=== PATIENT | female | born 1985 | race Caucasian/White ===

== ENCOUNTER 2021-11-18 12:28 | Inpatient (IN) | payer OTHER, SELFPAY ==
[2021-11-18] VITALS (25 sets, daily range): BP systolic 100–158; BP diastolic 67–86; PULSE 71–89; RESP 14–32; O2SAT 93–100; BMI 22.6; BMI 25.8
--- NOTE | 2021-11-18 12:28 | PC.NURSE ---
PT INTUBATED BY DR. VAZQUEZ.
--- NOTE | 2021-11-18 12:28 | PC.NURSE ---
PT PLACED ON CONTINUOUS SPO2, NIBP, AND CM.
[2021-11-18] MEDS: succinylcholine 20 mg/mL SDV 10mL 100 MG IV (12:30)
--- NOTE | 2021-11-18 12:35 | XRR_ITS ---
PROCEDURE INFORMATION: Exam: XR Chest Exam date and time: 11/18/2021 1:30 PM Age: 36 years old Clinical indication: Endotracheal tube placement. TECHNIQUE: Imaging protocol: Radiologic exam of the chest. Views: 1 view. COMPARISON: No relevant prior studies available. FINDINGS: Tubes, catheters and devices: Endotracheal tube with tip approximately 4.9 cm above the briseida. Probable spinal stimulator. Lungs: No pulmonary consolidation. Pleural spaces: No pleural effusion. No pneumothorax. Heart/Mediastinum: The cardiac silhouette is likely exaggerated by AP technique. No gross evidence of pneumomediastinum. Bones/joints: Thoracolumbar hardware is incompletely visualized. No gross fracture. Soft tissues: Nodular densities at the lung bases likely represent nipple shadows. Consider repeat chest x-ray with nipple markers to confirm. Organs: Probable prior cholecystectomy. XR/XR chest 1V portable [id number] IMPRESSION: 1. Endotracheal tube with tip approximately 4.9 cm above the briseida. 2. Nodular densities at the lung bases likely represent nipple shadows. Consider repeat chest x-ray with nipple markers to confirm.
--- NOTE | 2021-11-18 12:36 | CTR_ITS ---
PROCEDURE INFORMATION: Exam: CTA Chest With Contrast Exam date and time: 11/18/2021 1:51 PM Age: 36 years old Clinical indication: Other: Post code; Prior surgery; Surgery type: Back; Additional info: Cardiac arrest TECHNIQUE: Imaging protocol: Computed tomographic angiography of the chest with contrast. 3D rendering (Not supervised by radiologist): MIP and/or 3D reconstructed images were created by the technologist. Radiation optimization: All CT scans at this facility use at least one of these dose optimization techniques: automated exposure control; mA and/or kV adjustment per patient size (includes targeted exams where dose is matched to clinical indication); or iterative reconstruction. Contrast material: OMNI 350; Contrast volume: 95 ml; Contrast route: INTRAVENOUS (IV); COMPARISON: CR (CHEST, ) 11/18/2021 1:30 PM RADIATION DOSE METRICS: Total DLP (mGy-cm): 968.93 FINDINGS: Tubes, catheters and devices: ET tube in good position. Pulmonary arteries: There is no pulmonary embolism in the central-proximal segmental branches. Assessment of the peripheral subsegmental small branches is limited. Aorta: No aortic aneurysm. No aortic dissection. Lungs: Dependent atelectatic changes in both lungs. No acute consolidation/contusion or ground-glass opacity. Pleural spaces: Unremarkable. No pneumothorax. No pleural effusion. Heart: Minimal cardiomegaly. No obvious vascular congestion or coronary calcification. Lymph nodes: Unremarkable. No enlarged lymph nodes. Bones/joints: No acute fracture. Soft tissues: Unremarkable. PROCEDURE INFORMATION: Exam: CT Abdomen And Pelvis With Contrast Exam date and time: 11/18/2021 1:51 PM Age: 36 years old Clinical indication: Other: Post code; Prior surgery; Surgery type: Back; Additional info: Cardiac arrest TECHNIQUE: Imaging protocol: Computed tomography of the abdomen and pelvis with contrast. Radiation optimization: All CT scans at this facility use at least one of these dose optimization techniques: automated exposure control; mA and/or kV adjustment per patient size (includes targeted exams where dose is matched to clinical indication); or iterative reconstruction. Contrast material: OMNI 350; Contrast volume: 95 ml; Contrast route: INTRAVENOUS (IV); COMPARISON: CR (CHEST, ) 11/18/2021 1:30 PM RADIATION DOSE METRICS: Total DLP (mGy-cm): 968.93 FINDINGS: Liver: Normal liver size with nonspecific minimal periportal lucency. No obvious intrahepatic biliary dilatation however extrahepatic is obscured by metallic artifacts. Gallbladder and bile ducts: Cholecystectomy clips. Pancreas: Normal. No ductal dilation. Spleen: Normal. No splenomegaly. Adrenal glands: Normal. No mass. Kidneys and ureters: No obvious hydronephrosis or large calculi. Stomach and bowel: Large stool burden with significant amount of liquid stool suggesting possible diarrhea. Mild ascending colonic distension with no obvious obstructive mass or acute/abrupt transition point. No obvious small bowel obstruction. No pneumatosis or suspicious bowel wall thickening otherwise. Appendix: Normal appendix. Intraperitoneal space: Trace perihepatic ascites Vasculature: No obvious aortic aneurysm or dissection. The major aortic branches are somewhat obscured by artifacts. Lymph nodes: No enlarged lymph nodes. Urinary bladder: Unremarkable as visualized. Reproductive: No significant uterine enlargement however there is a probable dorsal body fundal intramural myoma measuring about 1.3 x 1.8 cm. No adnexal region masses. Bones/joints: Metallic surgical hardware in thoracolumbar junction resulting in streak artifacts partially obscuring adjacent anatomy. Several visceral vascular structures in the upper abdomen are somewhat obscured by metallic artifacts from spine fixation device. Minimal leftward scoliosis of upper lumbar spine. Soft tissues: No acute findings. CT/CT angio chest w abd pel w con IMPRESSION: 1. Dependent atelectatic changes in both lungs. No significant lung abnormalities or other acute thoracic findings otherwise. 2. Minimal cardiomegaly with no obvious vascular congestion. IMPRESSION: 1. Somewhat limited exam due to artifacts from thoracolumbar spine junction hardware. 2. Trace perihepatic ascites and minimal nonspecific periportal lucency/edema of uncertain significance but may be related to rapid IV hydration. Clinical/LFT correlation should be obtained. 3. Large stool burden with significant amount of liquid stool suggesting possible diarrhea. There is also mild ascending colonic distension with no other obvious signs of small bowel or colonic obstruction, pneumatosis or suspicious bowel wall thickening. 4. Probable small uterine fibroid.
--- NOTE | 2021-11-18 12:37 | ECG_ITS ---
[facility] Test Date: 2021-11-18 Pat Name: Lucy Michael Department: Room: [id number] Gender: Female Structural Drafter: : 1985 Requested By: Bryce Wade Order Number: [id number] Dea MD: Austin Keen M.D. Measurements Intervals [place] Rate: 83 P: 180 MO: 96 QRS: 104 QRSD: 129 T: 4 QT: 368 QTc: 434 Interpretive Statements SINUS RHYTHM WITH SHORT MO INTERVAL RIGHT AXIS DEVIATION [QRS AXIS > 100] Interventricular conduction delay Poor R wave progression INTERPRETATION BASED ON A DEFAULT AGE OF 40 YEARS No previous ECG available for comparison Electronically Signed On 11-19-2021 8:20:43 CDT by Austin Keen M.D. [id number] f
[2021-11-18] MEDS: sodium chloride 0.9% 1,000 ML 999 ML IV ×2 (12:40→14:48)
[2021-11-18] MEDS: chlorhexidine gluconate 4% Btl 118 mL 1 APPLIC TOPICAL (12:41)
--- NOTE | 2021-11-18 12:46 | CTR_ITS ---
PROCEDURE INFORMATION: Exam: CT Head Without Contrast Exam date and time: 11/18/2021 1:47 PM Age: 36 years old Clinical indication: Post code/cardiac arrest. Prior back surgery. TECHNIQUE: Imaging protocol: Computed tomography of the head without contrast. Radiation optimization: All CT scans at this facility use at least one of these dose optimization techniques: automated exposure control; mA and/or kV adjustment per patient size (includes targeted exams where dose is matched to clinical indication); or iterative reconstruction. COMPARISON: No relevant prior studies available. RADIATION DOSE METRICS: Total DLP (mGy-cm): 1129.78 FINDINGS: Brain: No acute intracranial hemorrhage. There is diffuse sulcal effacement with which may reflect generalized swelling. The handy-white differentiation is discernible arguing against presley global infarction. No mass, mass effect or midline shift. The subcortical and periventricular white matter is normal in attenuation. Cerebral ventricles: The ventricles are normal in configuration. Paranasal sinuses: Retention cysts or polyps in the left maxillary sinus.. Trace fluid layers in the right maxillary sinus with stringy debris. Mild mucosal thickening in the ethmoid air cells and sphenoid sinus. Mastoid air cells: No mastoid effusion. Orbital cavities: The visualized orbits are unremarkable. Bones/joints: No acute fracture is seen. Soft tissues: No scalp soft tissue swelling is seen. CT/CT head wo con* [id number] IMPRESSION: 1. Diffuse sulcal effacement with which may reflect mild generalized swelling. The handy-white differentiation is discernible arguing against presley global infarction. Recommend close interval follow-up to reassess. 2. No acute intracranial hemorrhage is identified.
[2021-11-18 12:49] LABS: Basophils # 0.1 10^3/uL (0.0-0.1); Basophils % 0.4 %; Eosinophils # 0.1 10^3/uL (0.0-0.8); Eosinophils % 0.8 %; Hematocrit 37.6 % (37.0-47.0); Hemoglobin 11.1 g/dL (11.5-15.3); Lymphocytes # 5.7 10^3/uL (0.8-4.8); Lymphocytes % 30.5 %; Mean Corpuscular HGB Conc 29.5 g/dL (30.0-36.0); Mean Corpuscular Hemoglobin 28.1 pg (28.0-34.0); Mean Corpuscular Volume 95.2 fl (81-99); Mean Platelet Volume 10.9 fL (7.4-10.4); Monocytes # 0.5 10^3/uL (0.2-0.9); Monocytes % 2.7 %; Neutrophils # 11.46 10^3/uL (1.8-7.7); Neutrophils % 61.7 %; Nucleated Red Blood Cells % 0 %; Platelet Count 246 10^3/cmm (130-400); Red Blood Count 3.95 10^6/uL (4.1-5.3); Red Cell Distribution Width 11.5 % (12.1-15.1); White Blood Count 18.6 10^3/uL (4.0-10.0)
[2021-11-18 12:50] LABS: ABG PCO2 32.9 mmHg (35-45); Arterial Blood Gas Hematocrit 34.7 % (37-47); Blood Gas Allen Test Pos; Blood Gas Operator Identificat AMH; Blood Gas Sample Site Radial, left; Blood Gas Sample Type Arterial; Carboxyhemoglobin 0.4 %THgb (0.4-20.1); HCO3 ABG 11.6 mmol/L (22-26); HGB O2 Sat 99.2 % (95-100); Ionized Calcium Level - ABG 1.1 mmol/L (1.1-1.4); Methemoglobin 0.6 % (0.4-1.5); Oxygen Device VENT; Oxygen Saturation ABG > 100.0; Potassium Level - ABG 3.4 mmol/L (3.5-5.0); Total Hemoglobin 11.3 g/dL (12-16)
[2021-11-18 12:51] LABS: ABG PH Result 7.16 (7.35-7.45)
[2021-11-18] MEDS: naloxone 2 MG in sodium chloride 0.9% (100 ml) 100 ML 20.4 MG IV (13:02)
--- NOTE | 2021-11-18 13:04 | PC.NURSE ---
IVP NARCAN ADM PT IS HAVING NORMALIZATION OF PUPILS, FLEXION TO PAIN, AND PURPOSEFUL EYE MOVEMENT.
[2021-11-18 13:05] LABS: Amphetamines Screen Urine Negative (Negative); Barbiturates Screen Urine Negative (Negative); Benzodiazepines Screen Urine Negative (Negative); Cocaine Screen Urine Negative (Negative); Opiate Screen Urine Negative (Negative); PCP Screen Urine Negative (Negative); THC Screen Urine Negative (Negative)
[2021-11-18 13:08] LABS: Add Urine Microscopic? YES; Bilirubin Urine Neg (Negative); Blood Urine 2+ (Negative); Glucose Urine UA Norm (Normal); Ketones Urine Negative (Negative); Leukocyte Esterase Urine Negative (Negative); Nitrate Urine Negative (Negative); Protein Urine 1+ (Negative); Specific Gravity, Urine 1.015 (1.005-1.030); Urine Appearance Clear (CLEAR); Urine Color Yellow (Yellow); Urobilinogen Urine Norm (Negative); pH Urine 6 (5-7)
[2021-11-18 13:11] LABS: RBC Urine 15-25 /hpf (0-2); WBC Urine 0-4 /hpf (0-5)
[2021-11-18 13:12] LABS: Bacteria Urine 2+ /hpf; Mucus Urine TRACE /hpf; Squamous Epithelial Cell Urine RARE /hpf (0-5)
[2021-11-18 13:15] LABS: Alanine Aminotransferase 93 U/L (0-33); Albumin Level 3.2 g/dL (3.5-5.2); Alkaline Phosphatase 59 U/L (35-105); Aspartate Amino Transferase 119 U/L (0-32); Blood Urea Nitrogen 13 mg/dL (6-20); Carbon Dioxide 10 mmol/L (22-29); Chloride 110 mmol/L (98-107); Creatine Phosphokinase 114 U/L (26-192); Creatinine Clr Calc Pharmacy 94.4891; Globulin 1.9 g/dL (1.3-4.6); Glomerular Filtration Rate 81.6 mL/min (90-130); Glucose 320 mg/dL (65-115); HCG, Serum Qual Negative (Negative); Lipase 125 U/L (13-60); Magnesium 2.1 mg/dL (1.7-2.3); Potassium 3.6 mmol/L (3.5-5.1); Total Bilirubin 0.5 mg/dL (0.15-1.2); Total Protein 5.1 g/dL (6.6-8.7)
[2021-11-18 13:16] LABS: Add Urine Culture? Yes
[2021-11-18] MEDS: midazolam 1 mg/mL INJ 2 mL 5 MG IVP (13:22)
--- NOTE | 2021-11-18 13:27 | ED_ITS ---
HPI - General Adult General: Chief complaint: Cardiac Arrest/CPR Stated complaint: CODE BLUE Time Seen by Provider: 11/18/21 12:34 History of Present Illness: Patient is brought in by EMS after being found down by her daughter and . Per the patient's his daughter came to him and told him that the patient was not breathing right or responding appropriately. When he arrived she was unresponsive. He initiated CPR. The paramedics were called and CPR was continued. In route the patient received epinephrine x3, amiodarone bolus x2 the first being 300 mg, and the second being 150 mg. Per EMS they were concerned that she was in V. fib at one point. Upon arrival in the emergency department the patient was actively being bagged with a Renaldo tube in place. CPR had been stopped as she had return of spontaneous circulation. We intubated her here. On physical exam she was clenching her jaw initially during intubation, however this relaxed. Her pupils were 2 mm and fixed bilaterally. With no spontaneous movements. I gave her 1 mg of Narcan IV, which elicited a response from bilateral pupils, as well as her moving both arms. She would blink, and started to tear up, but would not follow commands. We placed her in soft restraints to prevent her from pulling at the tube. Her drug screen came back negative. Her states she has no current narcotic or other drug use. Her initial blood gas shows a pH of 7.1. Per her her past medical his tory includes an ectopic . He states she has no history of seizures, or diabetes. We continued the Narcan drip at this time, and started on a propofol drip. We will check labs, CT, EKG, and reassess. We called the fashion adviser and he states that they did defibrillate the patient 5 times. Review of Systems General: Reports: Other (Unable to obtain review of systems due to patient's mental status) [facility] ED PFSH: Medical History (Updated 11/18/21 @ 14:31 by Austin Keen MD) Anoxic encephalopathy Physical Exam Narrative: EXAM NARRATIVE: Patient unresponsive Const: OTHER: unresponsive, intubated HENMT: OTHER: atraumatic, Eye: OTHER: pupils are 2 mm bilateral Chest: OTHER: no external trauma, CPR machine in place Resp: OTHER: pt is being bagged, no spontaneous respirations Cardio: OTHER: normal rate, sinus rhythm GI: OTHER: no palpable masses or ext injury Neuro: OTHER: Pt is unresponsive Course Vital Signs: Vital signs: Vital Signs Pulse Rate 87 11/18/21 12:30 Respiratory Rate 14 11/18/21 12:54 Blood Pressure 111/80 11/18/21 12:30 Pulse Oximetry 93 11/18/21 12:30 Oxygen Delivery Me thjimena Oxymask 11/18/21 12:30 Fraction of Inspir ed Oxygen 100 11/18/21 12:54 MDM - General Adult Medical Decision Making Patient is brought in by EMS after being found down by her daughter and . Per the patient's his daughter came to him and told him that the patient was not breathing right or responding appropriately. When he arrived she was unresponsive. He initiated CPR. The paramedics were called and CPR was continued. In route the patient received epinephrine x3, amiodarone bolus x2 the first being 300 mg, and the second being 150 mg. Per EMS they were con cerned that she was in V. fib at one point. Upon arrival in the emergency department the patient was actively being bagged with a Renaldo tube in place. CPR had been stopped as she had return of spontaneous circulation. We intubated her here. On physical exam she was clenching her jaw initially during intubation, however this relaxed. Her pupils were 2 mm and fixed bilaterally. With no spontaneous movements. I gave her 1 mg of Narcan IV, which elicited a response from bilateral pupils, as well as her moving both arms. She would blink, and started to tear up, but would not follow commands. We placed her in soft restraints to prevent her from pulling at the tube. Her drug screen came back negative. Her states she has no current narcotic or other drug use. Her initial blood gas shows a pH of 7.1. Per her her past medical history includes an ectopic . He states she has no history of seizures, or diabetes. We continued the Narcan drip at this time, and started on a propofol drip. We will check labs, CT, EKG, and reassess. We called the fashion adviser and he states that they did defibrillate the patient 5 times. I talked to the hospitalist about the patient, as well as cardiology. Will admit to the hospital for further work-up and treatment. Lab Data : 11/18/21 12:40 11/18/21 12:40 Radiology Impressions Chest X-Ray 11/18/21 12:35 IMPRESSION: 1. Endotracheal tube with tip approximately 4.9 cm above the briseida. 2. Nodular densities at the lung bases likely represent nipple shadows. Consider repeat chest x-ray with nipple markers to confirm. Chest/Abdomen/Pelvis CT 11/18/21 12:36 IMPRESSION: 1. Dependent atelectatic changes in both lungs. No significant lung abnormalities or other acute thoracic findings otherwise. 2. Minimal cardiomegaly with no obvious vascular congestion. IMPRESSION: 1. Somewhat limited exam due to artifacts from thoracolumbar spine junction hardware. 2. Trace perihepatic ascites and minimal nonspecific periportal lucency/edema of uncertain significance but may be related to rapid IV hydration. Clinical/LFT correlation should be obtained. 3. Large stool burden with significant amount of liquid stool suggesting possible diarrhea. There is also mild ascending colonic distension with no other obvious signs of small bowel or colonic obstruction, pneumatosis or suspicious bowel wall thickening. 4. Probable small uterine fibroid. Head CT 11/18/21 12:46 IMPRESSION: 1. Diffuse sulcal effacement with which may reflect mild generalized swelling. The handy-white differentiation is discernible arguing against presley global infarction. Recommend close interval follow-up to reassess. 2. No acute intracranial hemorrhage is identified. ADDENDUM: 11/18/[address] Berrios at 11/18/2021 2:18 PM CDT. Laboratory Results WBC 18.6 10^3/uL (4.0-10.0) H 11/18/21 12:40 RBC 3.95 10^6/uL (4.1-5.3) L 11/18/21 12:40 Hgb 11.1 g/dL (11.5-15.3) L 11/18/21 12:40 Hct 37.6 % (37.0-47.0) 11/18/21 12:40 MCV 95.2 fl (81-99) 11/18/21 12:40 MCH 28.1 pg (28.0-34.0) 11/18/21 12:40 MCHC 29.5 g/dL (30.0-36.0) L 11/18/21 12:40 RDW 11.5 % (12.1-15.1) L 11/18/21 12:40 Plt Count 246 10^3/cmm (130-400) 11/18/21 12:40 MPV 10.9 fL (7.4-10.4) H 11/18/21 12:40 Neut % (Auto) 61.7 % 11/18/21 12:40 Lymph % (Auto) 30.5 % 11/18/21 12:40 Snyder % (Auto) 2.7 % 11/18/21 12:40 Eos % (Auto) 0.8 % 11/18/21 12:40 Baso % (Auto) 0.4 % 11/18/21 12:40 Neut # (Auto) 11.46 10^3/uL (1.8-7.7) H 11/18/21 12:40 Lymph # (Auto) 5.7 10^3/uL (0.8-4.8) H 11/18/21 12:40 Snyder # (Auto) 0.5 10^3/uL (0.2-0.9) 11/18/21 12:40 Eos # (Auto) 0.1 10^3/uL (0.0-0.8) 11/18/21 12:40 Baso # (Auto) 0.1 10^3/uL (0.0-0.1) 11/18/21 12:40 Nucleated RBC % (auto) 0 % 11/18/21 12:40 Nucleated RBCs # 0.0 /100WBC 11/18/21 12:40 Specimen Type Arterial 11/18/21 12:39 Sample Site Radial, left 11/18/21 12:39 ABG pH 7.16 (7.35-7.45) L* 11/18/21 12:39 ABG pCO2 32.9 mmHg (35-45) L 11/18/21 12:39 ABG pO2 534.0 mmHg (80.0-100.0) H 11/18/21 12:39 ABG HCO3 11.6 mmol/L (22-26) L 11/18/21 12:39 ABG O2 Saturation > 100.0 11/18/21 12:39 ABG Base Excess -16.0 mmol/L (-2.0-2.0) L 11/18/21 12:39 Chance Test Pos 11/18/21 12:39 A-a O2 Gradient 16.0 mmHg (5-10) H 11/18/21 12:39 Hematocrit 34.7 % (37-47) L 11/18/21 12:39 Hgb O2 Saturation 99.2 % (95-100) 11/18/21 12:39 Carboxyhemoglobin 0.4 %THgb (0.4-20.1) 11/18/21 12:39 Methemoglobin 0.6 % (0.4-1.5) 11/18/21 12:39 Total Hemoglobin 11.3 g/dL (12-16) L 11/18/21 12:39 Sodium 138.0 mmol/L (131-143) 11/18/21 12:39 Potassium 3.4 mmol/L (3.5-5.0) L 11/18/21 12:39 Glucose 329.0 mg/dL (70-115) H 11/18/21 12:39 Ionized Calcium 1.1 mmol/L (1.1-1.4) 11/18/21 12:39 O2 Delivery Device Vent 11/18/21 12:39 FiO2 100.0 % 11/18/21 12:39 Tidal Volume 0.40 11/18/21 12:39 PEEP 5.0 cmH20 11/18/21 12:39 Roto Mixer Operator ID Amh 11/18/21 12:39 Sodium 139 mmol/L (136-145) 11/18/21 12:40 Potassium 3.6 mmol/L (3.5-5.1) 11/18/21 12:40 Chloride 110 mmol/L (98-107) H 11/18/21 12:40 Carbon Dioxide 10 mmol/L (22-29) L 11/18/21 12:40 Anion Gap 22.6 (5-19) H 11/18/21 12:40 BUN 13 mg/dL (6-20) 11/18/21 12:40 Creatinine 0.8 mg/dL (0.5-0.9) 11/18/21 12:40 GFR Calculation 81.6 mL/min (90-130) L 11/18/21 12:40 Glucose 320 mg/dL (65-115) H 11/18/21 12:40 Calculated Osmolality 300 mOsm/kg (285-295) H 11/18/21 12:40 Lactic Acid 8.2 mmol/L (0.5-2.2) H* 11/18/21 12:40 Calcium 7.0 mg/dL (8.5-10.5) L 11/18/21 12:40 Magnesium 2.1 mg/dL (1.7-2.3) 11/18/21 12:40 Total Bilirubin 0.5 mg/dL (0.15-1.2) 11/18/21 12:40 AST 119 U/L (0-32) H 11/18/21 12:40 ALT 93 U/L (0-33) H 11/18/21 12:40 Alkaline Phosphatase 59 U/L (35-105) 11/18/21 12:40 Creatine Kinase 114 U/L (26-192) 11/18/21 12:40 Total Protein 5.1 g/dL (6.6-8.7) L 11/18/21 12:40 Albumin 3.2 g/dL (3.5-5.2) L 11/18/21 12:40 Globulin 1.9 g/dL (1.3-4.6) 11/18/21 12:40 Lipase 125 U/L (13-60) H 11/18/21 12:40 HCG, Qual Negative (Negative) 11/18/21 12:40 Urine Color Yellow (Yellow) 11/18/21 12:40 Urine Appearance Clear (CLEAR) 11/18/21 12:40 Urine pH 6 (5-7) 11/18/21 12:40 Ur Specific [place] 1.015 (1.005-1.030) 11/18/21 12:40 Urine Protein 1+ (Negative) H 11/18/21 12:40 Urine Glucose (UA) Norm (Normal) 11/18/21 12:40 Urine Ketones Negative (Negative) 11/18/21 12:40 Urine Blood 2+ (Negative) H 11/18/21 12:40 Urine Nitrate Negative (Negative) 11/18/21 12:40 Urine Bilirubin Neg (Negative) 11/18/21 12:40 Urine Urobilinogen Norm mg/dL (Negative) 11/18/21 12:40 Ur Leukocyte Esterase Negative (Negative) 11/18/21 12:40 Urine RBC 15-25 /hpf (0-2) H 11/18/21 12:40 Urine WBC 0-4 /hpf (0-5) H 11/18/21 12:40 Ur Squamous Epith Cells Rare /hpf (0-5) 11/18/21 12:40 Amorphous Sediment Not Reportable 11/18/21 12:40 Urine Bacteria 2+ /hpf (NONE) H 11/18/21 12:40 Urine Mucus Trace /hpf 11/18/21 12:40 Salicylates < 0.3 mg/dL (3-10) L 11/18/21 12:40 Urine Opiates Screen Negative ng/mL (Negative) 11/18/21 12:40 Acetaminophen < 5.0 ug/mL (10-30) L 11/18/21 12:40 Ur Barbiturates Screen Negative ng/mL (Negative) 11/18/21 12:40 Ur Phencyclidine Scrn Negative ng/mL (Negative) 11/18/21 12:40 Ur Amphetamines Screen Negative ng/mL (Negative) 11/18/21 12:40 U Benzodiazepines Scrn Negative ng/mL (Negative) 11/18/21 12:40 Urine Cocaine Screen Negative ng/mL (Negative) 11/18/21 12:40 U Marijuana (THC) Screen Negative ng/mL (Negative) 11/18/21 12:40 Ethyl Alcohol < 10 mg/dL (0-10) 11/18/21 12:40 Serum Ketones Negative (Negative) 11/18/21 13:40 Coronavirus 229E (PCR) Not detected (NOT DETECT) 11/18/21 12:47 SARS-CoV-2 (PCR) Not detected (NOT DETECT) 11/18/21 12:47 EKG Data EKG done at 12:37 PM and interpreted at 12:38 PM shows sinus rhythm, ventricular rate of 83 bpm, no ST segment elevation, right axis deviation: Computer generated interpretation: Chest X-Ray 11/18/21 12:35 IMPRESSION: 1. Endotracheal tube with tip approximately 4.9 cm above the briseida. 2. Nodular densities at the lung bases likely represent nipple shadows. Consider repeat chest x-ray with nipple markers to confirm. Chest/Abdomen/Pelvis CT 11/18/21 12:36 IMPRESSION: 1. Dependent atelectatic changes in both lungs. No significant lung abnormalities or other acute thoracic findings otherwise. 2. Minimal cardiomegaly with no obvious vascular congestion. IMPRESSION: 1. Somewhat limited exam due to artifacts from thoracolumbar spine junction hardware. 2. Trace perihepatic ascites and minimal nonspecific periportal lucency/edema of uncertain significance but may be related to rapid IV hydration. Clinical/LFT correlation should be obtained. 3. Large stool burden with significant amount of liquid stool suggesting possible diarrhea. There is also mild ascending colonic distension with no other obvious signs of small bowel or colonic obstruction, pneumatosis or suspicious bowel wall thickening. 4. Probable small uterine fibroid. Head CT 11/18/21 12:46 IMPRESSION: 1. Diffuse sulcal effacement with which may reflect mild generalized swelling. The handy-white differentiation is discernible arguing against presley global infarction. Recommend close interval follow-up to reassess. 2. No acute intracranial hemorrhage is identified. ADDENDUM: 11/18/21 [address] Berrios at 11/18/2021 2:18 PM CDT. Discharge Plan Discharge Patient Disposition: Admitted As Inpatient Admit Provider: Ary Moran Clinical Impression: Cardiac arrest Condition: Stable Coding Level of Care Code ED Braiding Machine Tender for Leonard Ledesma
[2021-11-18] MEDS: propofol 1,000 MG/100 ML INJ 1.91 MG IV (13:30)
[2021-11-18 13:31] LABS: Slide Review Slide Review Perform
[2021-11-18 13:35] LABS: Acetaminophen < 5.0 ug/mL (10-30); Alcohol Level < 10 mg/dL (0-10); Anion Gap 22.6 (5-19); Osmolality Calculated 300 mOsm/kg (285-295); Salicylate < 0.3 mg/dL (3-10); Sodium 139 mmol/L (136-145)
[2021-11-18 13:37] LABS: Lactic Sepsis W/Reflex 8.2 mmol/L (0.5-2.2)
[2021-11-18] MEDS: iohexol 350 mg/mL 100 mL Btl IV (14:06)
[2021-11-18 14:15] LABS: Ketone (Acetest) Serum Negative (Negative)
[2021-11-18 14:16] LABS: Reflex Lactate Order REFLEX LACTIC ORDERD
[2021-11-18] MEDS: enoxaparin 60 mg/0.6 mL Syringe SUBCUT (14:19)
--- NOTE | 2021-11-18 14:19 | P.CONIM_ITS ---
Providers/Reason For Consult Consulting Physician/Specialty*: Cardiovascular medicine Reason for Consult*: Cardiopulmonary arrest Requesting Physician: Hospitalist/emergency room Attending Physician: Hospitalist History of Present Illness History of Present Illness Lucy Michael is a 36 year old female with no known prior history other than a ruptured ectopic several years ago. 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 She worked last evening and arrived home after 11:00. Her was there. He is also a nurse. I am taking the history from him. He is in the room. Apparently she told him that she felt like she was coming down with a viral illness and did feel quite well. She tested herself for COVID last evening and it was negative according to her . He apparently had COVID about a week ago. She went to bed in their bedroom. He slept on the couch. This morning around 11, their daughter came to him and told him that she felt like something was wrong with her mother. He he went back to the bedroom to find her unresponsive and breathing 3 or 4 times a minute. He checked for a pulse and was unable to find 1. He started CPR on the bed. He then moved her to the floor while calling 911. He estimates that it was 20 minutes before the paramedics arrived. They took over and utilized the ACLS protocol. He said that they gave her epinephrine and atropine. He also said that she was shocked at least 4 times in the bedroom and perhaps once in the ambulance. He was told by the paramedics that her original rhythm was either ventricular tachycardia or ventricular fibrillation. Unfortunately, we have no record of that. Somewhere along the line they were able to get back a heart rhythm and a pulse. She was intubated here in the emergency room. She has not awakened and is still unresponsive. She remains on a ventilator at this time. So far her head CT shows some generalized swelling but no bleed. Chest x-ray is unremarkable. Her toxicology screen is negative. Her lactate level is 8.2. Her blood sugar is 329. According to her she is not a diabetic. Her arterial blood gas reveals a PO2 of 534, PCO2 of 33 and a pH of 7.16. Her past medical history is negative. Her states she does not use any illicit substances. She takes no prescription medications. She does use some [id number] pain relievers. The twelve-lead EKG reveals some widening of the QRS but no ST elevation and no evidence of an acute myocardial infarction. There are some nonspecific ST wave changes. A Lopez catheter has been placed and she is making excellent urine output. Review of Systems Narrative: Patient is intubated. Medications/Allergies Home Medications Medication Instructions Recorded Confirmed Last Taken Type No Known Home Medications 11/18/21 11/18/21 Unknown History Allergies Allergy/AdvReac Type Severity Reaction Status Date / Time diphenhydramine AdvReac Intermediate ADR-Halluci Verified 11/18/21 13:37 [From Benadryl] nating Current Medications Generic Name Dose Route Start Last Admin Trade Name Freq PRN Reason Stop Dose Admin Chlorhexidine Gluconate 1 applic 11/19/21 01:00 11/18/21 12:41 Chlorhexidine Gluconate 4% Btl 118 Ml TOPICAL 1 applic 0100 HILARY Administration Naloxone HCl 2 mg/ Sodium 102 mls @ 20.4 mls/hr 11/18/21 13:15 11/18/21 13:02 Chloride IV 0.4 mg/hr .Q5H HILARY 20.4 mls/hr Administration 0.4 MG/HR Propofol 1,000 mg in 100 mls @ 0 mls/hr 11/18/21 13:30 11/18/21 13:30 Diprivan IV 5 mcg/kg/min .Q0M HILARY 1.91 mls/hr Administration Protocol Per Protocol PFSH Acute PFSH: Medical History (Updated 11/18/21 @ 14:31 by Austin Keen MD) Anoxic encephalopathy Vitals/I&O/Wt Last Vital Signs Pulse 87 11/18/21 12:30 Resp 14 11/18/21 12:54 BP 111/80 11/18/21 12:30 Pulse Ox 93 11/18/21 12:30 O2 Del Method Oxymask 11/18/21 12:30 FiO2 100 11/18/21 12:54 11/17/21 11/18/21 11/18/21 22:59 06:59 14:59 Intake Total 1000 / 1000 Balance 1000 / 1000 Weight last 48 hrs Weight 140 lb Physical Exam Narrative: GENERAL: She is intubated and unresponsive. There is some generalized shivering and some spontaneous jerking of the extremities. HEENT: Exam within normal limits. NECK: Supple without jugular vein distention. The carotid upstroke is normal without bruits. BACK: Exam normal. LUNGS: Clear. HEART: Regular rate and rhythm. ABDOMEN: Benign without organomegaly or tenderness. EXTREMITIES: No edema. NEUROLOGIC: Exam not done other than a cursory exam reveals coma. SKIN: Unremarkable. Urinary Catheter Management: Lopez: Cath Placed During This Visit: yes Urinary Catheter Date of Insertion: 11/18/21 Urinary Catheter Time of Insertion: 12:39 Data : 11/18/21 12:40 11/18/21 12:40 A&P Assessment and plan (1) Cardiac arrest: Status: Acute (2) Anoxic encephalopathy: Status: Acute Plan At this point she does not need cardiac catheterization. The most important determining factor will be her central nervous system. We do not know how long she was down without a pulse so her central nervous system anoxia will be the determining factor for her survival. I spoke to her at length about all of this. He is acutely aware given the fact that he is a nurse. We will see what happens over the next 48 hours. If she wakes up she will need a cardiac work-up to include cardiac catheterization. In the meantime an echo has been ordered I understand. Consult Attestations Medical Necessity Statement: Admission for management of a cardiopulmonary arrest, outpatient. Coding Level of Care Code New Pt Acute Dope Heater for Leonard Ledesma Patient Type New History Comprehensive Exam Comprehensive Medical Decision Making High Complexity Diagnoses Cardiac arrest I46.9 Anoxic encephalopathy G93.1
[2021-11-18] MEDS: sodium bicarbonate 50 MEQ in sodium chloride 0.45% 1,000 ML 100 MEQ IV (14:25)
--- NOTE | 2021-11-18 14:38 | PC.NURSE ---
ATTEMPTED REPORT NURSE UNAVAILABLE.
[2021-11-18 14:53] LABS: Adenovirus Not Detected (NOT DETECT); Chlamydia Pneumoniae Not Detected (NOT DETECT); Coronavirus 229E,HKU1,NL63,OC4 Not Detected (NOT DETECT); Human Metapneumovirus Not Detected (NOT DETECT); Human Rhinovirus/Enterovirus Not Detected (NOT DETECT); Influenza A Not Detected (NOT DETECT); Influenza A H1 Not Detected (NOT DETECT); Influenza A H1-2009 Not Detected (NOT DETECT); Influenza A H3 Not Detected (NOT DETECT); Influenza B Not Detected (NOT DETECT); Mycoplasma Pneumoniae Not Detected (NOT DETECT); Parainfluenza Virus Type 1 Not Detected (NOT DETECT); Parainfluenza Virus Type 2 Not Detected (NOT DETECT); Parainfluenza Virus Type 3 Not Detected (NOT DETECT); Parainfluenza Virus Type 4 Not Detected (NOT DETECT); Respiratory Syncytial Virus A Not Detected (NOT DETECT); Respiratory Syncytial Virus B Not Detected (NOT DETECT); SARS-COV-2 Not Detected (NOT DETECT)
--- NOTE | 2021-11-18 15:18 | PM.HP ---
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 working yesterday when she told her friends that she was not feeling right, she did tell her friend that she might be coming down with a viral illness, she tested herself for COVID-19 infection which was negative, she went out with her friends yesterday and then went home, around 11 AM her daughter who is 10 years old notified her father that her mother was not breathing right, her is also a nurse who works at a clinic, he immediately checked on her, he was sleeping on a couch, when he checked on her he could not find a pulse and started CPR and called 911, there was a delay for about 18 to 20 minutes before EMS arrived, meanwhile her continued chest compressions along [id number] breaths, EMS arrived and inserted Renaldo airway, resume chest compressions and defibrillated her 3-4 times as per the , he was told initial rhythm was V. fib, she required couple of doses of epinephrine along amiodarone, she was brought to the ER and was intubated right away by the ER physician, her blood work showed severe metabolic acidosis related to lactic acidemia, by the time ER called me I requested them to consult Dr. Keen right away and rule out PE requested serum ketones rule out DKA as her blood sugar was high along metabolic acidosis, I also requested therapeutic Lovenox and continuation of amiodarone drip and addition of bicarb gtt. Dr. Keen evaluated her at the bedside and recommended medical management for now, she is in sinus rhythm with normal hemodynamics she is showing extensor posturing, myoclonus, rapid eye movement in vertical and horizontal axis, she is currently on FiO2 21% repeat ABG was requested along lactic acid which showed mild improvement of metabolic acidosis she was given calcium gluconate Potassium 3.6, magnesium 2.1 with abnormal liver enzymes She is not UA is unremarkable other than hematuria Drug screen is negative As per the she was taking tramadol for her back pain She has history of scoliosis and her surgery was done when she was 17 years old She has been complaining of mild weakness and shortness of breath for last few days as per the no one else is sick at home, no family history of sudden cardiac arrest CT head showing diffuse edema with effacement IMPRESSION: 1. Diffuse sulcal effacement with which may reflect mild generalized swelling. The handy-white differentiation is discernible arguing against presley global infarction. Recommend close interval follow-up to reassess. 2. No acute intracranial hemorrhage is identified. Decision was made to start her on Versed and Nimbex because of her active convulsions Review of Systems General: Reports: ROS unobtainable due to endotracheal tube Medications/Allergies Home Medications Medication Instructions Recorded Confirmed Last Taken Type No Known Home Medications 11/18/21 11/18/21 Unknown History Allergies Allergy/AdvReac Type Severity Reaction Status Date / Time diphenhydramine AdvReac Intermediate ADR-Halluci Verified 11/18/21 13:37 [From Benadryl] nating PFSH Acute PFSH: Medical History Anoxic encephalopathy Scoliosis Surgical History Previous back surgery Family History Denies family history of CAD (coronary artery disease) Social History (Updated 11/18/21 @ 18:21 by Ary Moran MD) Smoking and tobacco status: never smoked Alcohol intake: never Substance/Drug Use: never Household members: spouse Vitals/I&O/Wt Last Vital Signs Pulse 87 11/18/21 12:30 Resp 14 11/18/21 12:54 BP 111/80 11/18/21 12:30 Pulse Ox 93 11/18/21 12:30 O2 Del Method Oxymask 11/18/21 12:30 FiO2 100 11/18/21 12:54 11/18/21 11/18/21 11/18/21 06:59 14:59 22:59 Intake Total 1000 / 1000 Balance 1000 / 1000 Weight last 48 hrs Weight 63.503 kg Physical Exam Narrative: Patient is showing extensor posturing Vertical and horizontal movement of eyes Myoclonus present Pupils are not reactive to light Currently hemodynamically stable Rectal tube with diarrhea Abdomen soft No signs of edema No signs of skin mottling Lower extremity no edema Family at the bedside at the time of my evaluation No reflexes Urinary Catheter Management: Lopez: Cath Placed During This Visit: yes Urinary Catheter Date of Insertion: 11/18/21 Urinary Catheter Time of Insertion: 12:39 Data : 11/18/21 12:40 11/18/21 12:40 A&P Assessment and plan (1) Back pain: Status: Acute (2) Anoxic encephalopathy: Status: Acute (3) Cardiac arrest: Status: Acute (4) Respiratory failure: Status: Acute (5) Lactic acidemia: Status: Acute (6) Metabolic acidosis: Status: Acute (7) Constipation: Status: Acute Plan Respiratory failure s/p cardiac arrest Sudden cardiac arrest Likely malignant arrhythmia Exact time of onset is unknown, was sleeping in a different room when he was notified by his daughter EMS written report is also not available in the ER unfortunately Patient was defibrillated 3-4 times as per the She was also given amiodarone and a couple doses of epinephrine, Renaldo airway was used to protect her airway by the EMS, There was a delay of about 20 minutes before EMS arrived CT head showing sulcal effacement with mild generalized swelling Concern for anoxic brain injury as she has no reflexes, pupils are not reactive, vertical and horizontal axis movement of eyes, extensor posturing and myoclonus present at the time of my evaluation I would like to give her [address] head on Saturday without contrast Meanwhile I will keep her on Nimbex, Versed along bicarb I have given her calcium gluconate Continue amiodarone watch QTC interval for now Appreciate cardiology recommendations We will follow-up with echo No signs of PE CT abdomen pelvis showing constipation I do not think she has ischemic colitis her lactic acid is secondary to cardiac arrest She is not hypoxic at this point, no signs of hyperkalemia, no signs of tension pneumothorax, rule out cardiac tamponade because of low voltage QRS on her EKG I do not see JVD muffled heart sound or hypertension to support cardiac tamponade at this point Repeat lactic acid Repeat ABG showed mild improvement of acidosis Will keep her normothermic, hypothermic protocol could not be initiated as per the nursing staff, they do not have cooling blankets at this point I spoke with the CCU hypothermia protocol team at [facility] Discussed this case with Dr Ortega who responded very quickly to my call and graciously accepted the patient for hypothermia protocol despite her poor prognosis is in agreement for the transfer and initiation of hypothermia protocol they are well aware of her guarded prognosis we will send the images and records Attestations Medical Necessity Statement*: Guarded prognosis More than 2 midnights anticipated for management of postcardiac arrest Time Spent in Patient Care: 50 Critical Care Time: 50 Coding Level of Care Code Acute Funeral Limousine Driver for Leonard Ledesma Diagnoses Back pain M54.9 Anoxic encephalopathy G93.1 Cardiac arrest I46.9 Respiratory failure J96.90 Lactic acidemia E87.2 Metabolic acidosis E87.2 Constipation K59.00
--- NOTE | 2021-11-18 15:18 | PC.NURSE ---
REPORT CALLED TO MADDIE IN ICU.
[2021-11-18] MEDS: calcium gluconate 0.9% NaCL 1 GM/50 ML PREMIX IV ×2 (16:24→16:54)
[2021-11-18 16:47] LABS: ABG PCO2 32.6 mmHg (35-45); ABG PH Result 7.28 (7.35-7.45); Arterial Blood Gas Hematocrit 39.9 % (37-47); Base Excess ABG -10.4 mmol/L (-2.0-2.0); Blood Gas Allen Test Pos; Blood Gas Operator Identificat GD; Blood Gas Sample Site Radial, left; Blood Gas Sample Type Arterial; HCO3 ABG 15.3 mmol/L (22-26); Oxygen Device VENT
[2021-11-18 16:55] LABS: Estmated Average Glucose 111; Hemoglobin A1C 5.5 % (4.0-6.0)
--- NOTE | 2021-11-18 17:50 | ECG_ITS ---
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 Measurements Intervals [place] Rate: 71 P: 57 CO: 221 QRS: 99 QRSD: 107 T: -30 QT: 367 QTc: 399 Interpretive Statements SINUS RHYTHM WITH FIRST DEGREE AV BLOCK WITH OCCASIONAL VENTRICULAR PREMATURE COMPLEXES POSSIBLE LEFT ATRIAL ENLARGEMENT [-0.1mV P-WAVE IN V1/V2] BORDERLINE RIGHT AXIS DEVIATION [QRS AXIS > 90] LOW QRS VOLTAGE IN PRECORDIAL LEADS [QRS DEFLECTION < 1.0 mV IN CHEST LEADS] Possible SEPTAL MYOCARDIAL INFARCTION , OF INDETERMINATE AGE [40+ ms Q WAVE IN V1/V2] INTERPRETATION BASED ON A DEFAULT AGE OF 40 YEARS Compared to ECG 11/18/2021 12:37:48 First degree AV block now present Low QRS voltage now present Short CO interval no longer present Electronically Signed On 11-19-2021 8:22:23 CDT by Austin Keen M.D. [id number]
[2021-11-18] MEDS: piperacillin-tazobactam 3.375 GM in sodium chloride 0.9% (plus) 50 ML IV (18:23)
--- NOTE | 2021-11-18 19:22 | P.TS_ITS ---
Transfer Summary Providers Date of Admission: 11/18/21 13:47 Date of Discharge/Transfer: 11/18/21 Attending Provider at Admission: Ary Moran MD Attending Provider at Transfer: Ary Moran MD Transfer Plans: Anticipated date of transfer: 11/18/21 . 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 the ER when she told her friends that she was not feeling well, she did tell her friend that she might be coming down with a viral illness, she tested herself for COVID-19 infection which was negative, she went out with her friends yesterday and then went home, around 11 AM her daughter who is 10 years old notified her father that her mother was not breathing right, her is also a nurse who works at a clinic, he immediately checked on her, he was sleeping on a couch, when he checked on her h e could not find a pulse and started CPR and called 911, there was a delay for about 18 to 20 minutes before EMS arrived, meanwhile her continued chest compressions along [id number] breaths, EMS arrived and inserted Renaldo airway, resume chest compressions and defibrillated her 3-4 times as per the , he was told initial rhythm was V. fib, she required couple of doses of epinephrine along amiodarone, she was brought to the ER and was intubated right away by the ER physician, her blood work showed severe metabolic acidosis related to lactic acidemia, by the time ER called me I requested them to consult Dr. Keen right away and rule out PE requested serum ketones rule out DKA as her blood sugar was high along metabolic acidosis, I also requested therapeutic Lovenox and contin uation of amiodarone drip and addition of bicarb gtt. Dr. Keen salon customer experience specialist evaluated her at the bedside and recommended medical management for now, she is in sinus rhythm with normal hemodynamics she is showing extensor posturing, myoclonus, rapid eye movement in vertical and horizontal axis, she is currently on FiO2 21% repeat ABG was requested along lactic acid which showed mild improvement of metabolic acidosis she was given calcium gluconate Potassium 3.6, magnesium 2.1 with abnormal liver enzymes She is not UA is unremarkable other than hematuria Drug screen is negative As per the she was taking tramadol for her back pain She has history of scoliosis and her surgery was done when she was 17 years old She has been complaining of mild weakness and shortness of breath for last few days as per the no one else is sick at home, no family history of sudden cardiac arrest CT head showing diffuse edema with effacement IMPRESSION: 1. Diffuse sulcal effacement with which may reflect mild generalized swelling. The handy-white differentiation is discernible arguing against presley global infarction. Recommend close interval follow-up to reassess. 2. No acute intracranial hemorrhage is identified. A&P Respiratory failure s/p cardiac arrest Sudden cardiac arrest Likely malignant arrhythmia Exact time of onset is unknown, was sleeping in a different room when he was notified by his daughter EMS written report is also not available in the ER unfortunately Patient was defibrillated 3-4 times as per the She was also given amiodarone and a couple doses of epinephrine, Renaldo airway was used to protect her airway by the EMS, There was a delay of about 20 minutes before EMS arrived CT head showing sulcal effacement with mild generalized swelling Concern for anoxic brain injury as she has no reflexes, pupils are not reactive, vertical and horizontal axis movement of eyes, extensor posturing and myoclonus present at the time of my evaluation I would like to give her [address] head on Saturday without contrast Meanwhile I will keep her on Nimbex, Versed along bicarb I have given her calcium gluconate Continue amiodarone, monitor QTC interval , No signs of QT prolongoatoin on ekg Appreciate cardiology recommendations We will follow-up with echo No signs of PE CT abdomen pelvis showing constipation I do not think she has ischemic colitis her lactic acid is secondary to cardiac arrest She is not hypoxic at this point, no signs of hyperkalemia, no signs of tension pneumothorax, rule out cardiac tamponade because of low voltage QRS on her EKG I do not see JVD muffled heart sound or hypertension to support cardiac tamponade at this point Repeat lactic acid Repeat ABG showed mild improvement of acidosis BEDSIDE USG SHOWED EF approx 30-35% Will keep her normothermic, hypothermic protocol could not be initiated as per the nursing staff, they do not have cooling blankets in the ICU TODAY I spoke with the CCU hypothermia protocol team at [facility] Discussed this case with Dr Ortega who responded very quickly to my call and graciously accepted the patient for hypothermia protocol despite her poor prognosis is in agreement for the transfer and initiation of hypothermia protocol they are well aware of her guarded prognosis we will send the images and records CT ABD CTA CHEST COMPARISON: CR (CHEST, ) 11/18/2021 1:30 PM RADIATION DOSE METRICS: Total DLP (mGy-cm): 968.93 FINDINGS: Liver: Normal liver size with nonspecific minimal periportal lucency. No obvious intrahepatic biliary dilatation however extrahepatic is obscured by metallic artifacts. Gallbladder and bile ducts: Cholecystectomy clips. Pancreas: Normal. No ductal dilation. Spleen: Normal. No splenomegaly. Adrenal glands: Normal. No mass. Kidneys and ureters: No obvious hydronephrosis or large calculi. Stomach and bowel: Large stool burden with significant amount of liquid stool suggesting possible diarrhea. Mild ascending colonic distension with no obvious obstructive mass or acute/abrupt transition point. No obvious small bowel obstruction. No pneumatosis or suspicious bowel wall thickening otherwise. Appendix: Normal appendix. Intraperitoneal space: Trace perihepatic ascites Vasculature: No obvious aortic aneurysm or dissection. The major aortic branches are somewhat obscured by artifacts. Lymph nodes: No enlarged lymph nodes. Urinary bladder: Unremarkable as visualized. Reproductive: No significant uterine enlargement however there is a probable dorsal body fundal intramural myoma measuring about 1.3 x 1.8 cm. No adnexal region masses. Bones/joints: Metallic surgical hardware in thoracolumbar junction resulting in streak artifacts partially obscuring adjacent anatomy. Several visceral vascular structures in the upper abdomen are somewhat obscured by metallic artifacts from spine fixation device. Minimal leftward scoliosis of upper lumbar spine. Soft tissues: No acute findings. CT/CT angio chest w abd pel w con IMPRESSION: 1. Dependent atelectatic changes in both lungs. No significant lung abnormalities or other acute thoracic findings otherwise. 2. Minimal cardiomegaly with no obvious vascular congestion. ? ? IMPRESSION: 1. Somewhat limited exam due to artifacts from thoracolumbar spine junction hardware. 2. Trace perihepatic ascites and minimal nonspecific periportal lucency/edema of uncertain significance but may be related to rapid IV hydration. Clinical/LFT correlation should be obtained. 3. Large stool burden with significant amount of liquid stool suggesting possible diarrhea. There is also mild ascending colonic distension with no other obvious signs of small bowel or colonic obstruction, pneumatosis or suspicious bowel wall thickening. 4. Probable small uterine fibroid. CXR IMPRESSION: 1. Endotracheal tube with tip approximately 4.9 cm above the briseida. 2. Nodular densities at the lung bases likely represent nipple shadows. Consider repeat chest x-ray with nipple markers to confirm. Physical Exam Urinary Catheter Management: Lopez: Cath Placed During This Visit: yes Reason for Continuing Indwelling Catheter: Accurate Measurement of Urinary Output in Critically Ill Patients Urinary Catheter Date of Insertion: 11/18/21 Urinary Catheter Time of Insertion: 12:39 TS Data Studies Completed and Pending Pending at discharge Category Date Time Status CA echo doppler complete Stat Exams 11/18/21 13:40 Ordered Arterial Blood Gas W/O Coox AM LABS Lab 11/19/21 04:00 Ordered B12 [Vitamin B12] Routine Lab 11/18/21 15:21 Ordered Bacterial Antigen Routine Lab 11/18/21 16:45 Received Blood Culture Stat Lab 11/18/21 12:36 Ordered C Reactive Protein AM LABS Lab 11/19/21 04:00 Ordered CDIFF [Clostridioides Difficile PCR] Routine Lab 11/18/21 17:52 Uncollected CMP [Comprehensive Metabolic Panel] Stat Lab 11/18/21 15:21 Ordered Complete Blood Count w/Auto AM LABS Lab 11/19/21 04:00 Ordered Comprehensive Metabolic Panel AM LABS Lab 11/19/21 04:00 Ordered Lactate (Lactic Acid level) AM LABS Lab 11/19/21 04:00 Ordered Lactic Sepsis W/Reflex Stat Lab 11/18/21 15:24 Ordered Legionella Antigen STAT Routine Lab 11/18/21 16:45 Received MRSA by PCR Stat Lab 11/18/21 16:45 Received Magnesium Routine Lab 11/18/21 15:21 Ordered PHOS [Phosphorus] AM LABS Lab 11/19/21 04:00 Ordered Procalcitonin Stat Lab 11/18/21 15:21 Ordered Prolactin Routine Lab 11/18/21 16:09 Ordered Sputum Culture and Gram Stain Routine Lab 11/18/21 12:45 Results Sputum Culture and Gram Stain Stat Lab 11/18/21 13:45 Ordered TSH [Thyroid Stimulating Hormone] Routine Lab 11/18/21 15:21 Ordered Urine Culture Stat Lab 11/18/21 12:40 Received Labs from last 24 hours 11/18/21 11/18/21 11/18/21 16:30 13:40 13:40 WBC RBC Hgb Hct MCV MCH MCHC RDW Plt Count MPV Neut % (Auto) Lymph % (Auto) Ray % (Auto) Eos % (Auto) Baso % (Auto) Neut # (Auto) Lymph # (Auto) Ray # (Auto) Eos # (Auto) Baso # (Auto) Nucleated RBC % (auto) Nucleated RBCs # Specimen Type Arterial Sample Site Radial, left ABG pH 7.28 L ABG pCO2 32.6 L ABG pO2 144.0 H ABG HCO3 15.3 L ABG O2 Saturation ABG Base Excess -10.4 L Chance Test Pos A-a O2 Gradient Hematocrit 39.9 Hgb O2 Saturation Carboxyhemoglobin Methemoglobin Total Hemoglobin Sodium Potassium Glucose Ionized Calcium O2 Delivery Device Vent FiO2 30.0 Tidal Volume 0.40 PEEP 5.0 Biofuels Plant Superintendent ID Gd Chloride Carbon Dioxide Anion Gap BUN Creatinine GFR Calculation Estimat Average Glucose 111 Hemoglobin A1c 5.5 Calculated Osmolality Lactic Acid Calcium Magnesium Total Bilirubin AST ALT Alkaline Phosphatase Creatine Kinase Total Protein Albumin Globulin Lipase HCG, Qual Urine Color Urine Appearance Urine pH Ur Specific [place] Urine Protein Urine Glucose (UA) Urine Ketones Urine Blood Urine Nitrate Urine Bilirubin Urine Urobilinogen Ur Leukocyte Esterase Urine RBC Urine WBC Ur Squamous Epith Cells Amorphous Sediment Urine Bacteria Urine Mucus Salicylates Urine Opiates Screen Acetaminophen Ur Barbiturates Screen Ur Phencyclidine Scrn Ur Amphetamines Screen U Benzodiazepines Scrn Urine Cocaine Screen U Marijuana (THC) Screen Ethyl Alcohol Serum Ketones Negative Coronavirus 229E (PCR) SARS-CoV-2 (PCR) 11/18/21 11/18/21 11/18/21 12:47 12:40 12:40 WBC RBC Hgb Hct MCV MCH MCHC RDW Plt Count MPV Neut % (Auto) Lymph % (Auto) Ray % (Auto) Eos % (Auto) Baso % (Auto) Neut # (Auto) Lymph # (Auto) Ray # (Auto) Eos # (Auto) Baso # (Auto) Nucleated RBC % (auto) Nucleated RBCs # Specimen Type Sample Site ABG pH ABG pCO2 ABG pO2 ABG HCO3 ABG O2 Saturation ABG Base Excess Chance Test A-a O2 Gradient Hematocrit Hgb O2 Saturation Carboxyhemoglobin Methemoglobin Total Hemoglobin Sodium Potassium Glucose Ionized Calcium O2 Delivery Device FiO2 Tidal Volume PEEP Biofuels Plant Superintendent ID Chloride Carbon Dioxide Anion Gap BUN Creatinine GFR Calculation Estimat Average Glucose Hemoglobin A1c Calculated Osmolality Lactic Acid Calcium Magnesium Total Bilirubin AST ALT Alkaline Phosphatase Creatine Kinase Total Protein Albumin Globulin Lipase HCG, Qual Urine Color Yellow Urine Appearance Clear Urine pH 6 Ur Specific [place] 1.015 Urine Protein 1+ H Urine Glucose (UA) Norm Urine Ketones Negative Urine Blood 2+ H Urine Nitrate Negative Urine Bilirubin Neg Urine Urobilinogen Norm Ur Leukocyte Esterase Negative Urine RBC 15-25 H Urine WBC 0-4 H Ur Squamous Epith Cells Rare Amorphous Sediment Not Reportable Urine Bacteria 2+ H Urine Mucus Trace Salicylates Urine Opiates Screen Negative Acetaminophen Ur Barbiturates Screen Negative Ur Phencyclidine Scrn Negative Ur Amphetamines Screen Negative U Benzodiazepines Scrn Negative Urine Cocaine Screen Negative U Marijuana (THC) Screen Negative Ethyl Alcohol Serum Ketones Coronavirus 229E (PCR) Not detected SARS-CoV-2 (PCR) Not detected 11/18/21 11/18/21 11/18/21 12:40 12:40 12:40 WBC RBC Hgb Hct MCV MCH MCHC RDW Plt Count MPV Neut % (Auto) Lymph % (Auto) Ray % (Auto) Eos % (Auto) Baso % (Auto) Neut # (Auto) Lymph # (Auto) Ray # (Auto) Eos # (Auto) Baso # (Auto) Nucleated RBC % (auto) Nucleated RBCs # Specimen Type Sample Site ABG pH ABG pCO2 ABG pO2 ABG HCO3 ABG O2 Saturation ABG Base Excess Chance Test A-a O2 Gradient Hematocrit Hgb O2 Saturation Carboxyhemoglobin Methemoglobin Total Hemoglobin Sodium 139 Potassium 3.6 Glucose 320 H Ionized Calcium O2 Delivery Device FiO2 Tidal Volume PEEP Biofuels Plant Superintendent ID Chloride 110 H Carbon Dioxide 10 L Anion Gap 22.6 H BUN 13 Creatinine 0.8 GFR Calculation 81.6 L Estimat Average Glucose Hemoglobin A1c Calculated Osmolality 300 H Lactic Acid 8.2 H* Calcium 7.0 L Magnesium 2.1 Total Bilirubin 0.5 AST 119 H ALT 93 H Alkaline Phosphatase 59 Creatine Kinase 114 Total Protein 5.1 L Albumin 3.2 L Globulin 1.9 Lipase 125 H HCG, Qual Negative Urine Color Urine Appearance Urine pH Ur Specific [place] Urine Protein Urine Glucose (UA) Urine Ketones Urine Blood Urine Nitrate Urine Bilirubin Urine Urobilinogen Ur Leukocyte Esterase Urine RBC Urine WBC Ur Squamous Epith Cells Amorphous Sediment Urine Bacteria Urine Mucus Salicylates < 0.3 L Urine Opiates Screen Acetaminophen < 5.0 L Ur Barbiturates Screen Ur Phencyclidine Scrn Ur Amphetamines Screen U Benzodiazepines Scrn Urine Cocaine Screen U Marijuana (THC) Screen Ethyl Alcohol < 10 Serum Ketones Coronavirus 229E (PCR) SARS-CoV-2 (PCR) 11/18/21 11/18/21 12:40 12:39 WBC 18.6 H RBC 3.95 L Hgb 11.1 L Hct 37.6 MCV 95.2 MCH 28.1 MCHC 29.5 L RDW 11.5 L Plt Count 246 MPV 10.9 H Neut % (Auto) 61.7 Lymph % (Auto) 30.5 Ray % (Auto) 2.7 Eos % (Auto) 0.8 Baso % (Auto) 0.4 Neut # (Auto) 11.46 H Lymph # (Auto) 5.7 H Ray # (Auto) 0.5 Eos # (Auto) 0.1 Baso # (Auto) 0.1 Nucleated RBC % (auto) 0 Nucleated RBCs # 0.0 Specimen Type Arterial Sample Site Radial, left ABG pH 7.16 L* ABG pCO2 32.9 L ABG pO2 534.0 H ABG HCO3 11.6 L ABG O2 Saturation > 100.0 ABG Base Excess -16.0 L Chance Test Pos A-a O2 Gradient 16.0 H Hematocrit 34.7 L Hgb O2 Saturation 99.2 Carboxyhemoglobin 0.4 Methemoglobin 0.6 Total Hemoglobin 11.3 L Sodium 138.0 Potassium 3.4 L Glucose 329.0 H Ionized Calcium 1.1 O2 Delivery Device Vent FiO2 100.0 Tidal Volume 0.40 PEEP 5.0 Biofuels Plant Superintendent ID Amh Chloride Carbon Dioxide Anion Gap BUN Creatinine GFR Calculation Estimat Average Glucose Hemoglobin A1c Calculated Osmolality Lactic Acid Calcium Magnesium Total Bilirubin AST ALT Alkaline Phosphatase Creatine Kinase Total Protein Albumin Globulin Lipase HCG, Qual Urine Color Urine Appearance Urine pH Ur Specific [place] Urine Protein Urine Glucose (UA) Urine Ketones Urine Blood Urine Nitrate Urine Bilirubin Urine Urobilinogen Ur Leukocyte Esterase Urine RBC Urine WBC Ur Squamous Epith Cells Amorphous Sediment Urine Bacteria Urine Mucus Salicylates Urine Opiates Screen Acetaminophen Ur Barbiturates Screen Ur Phencyclidine Scrn Ur Amphetamines Screen U Benzodiazepines Scrn Urine Cocaine Screen U Marijuana (THC) Screen Ethyl Alcohol Serum Ketones Coronavirus 229E (PCR) SARS-CoV-2 (PCR) Completed Studies During Hospitalization Category Date Time Status CT head wo con* [id number] Stat Cat Scan 11/18/21 12:46 Completed CTA chest [CT angio chest w abd pel w con] Stat Cat Scan 11/18/21 12:36 Completed XR chest 1V portable [id number] Stat Exams 11/18/21 12:35 Completed Laboratory Last Values WBC 18.6 10^3/uL (4.0-10.0) H 11/18/21 12:40 RBC 3.95 10^6/uL (4.1-5.3) L 11/18/21 12:40 Hgb 11.1 g/dL (11.5-15.3) L 11/18/21 12:40 Hct 37.6 % (37.0-47.0) 11/18/21 12:40 MCV 95.2 fl (81-99) 11/18/21 12:40 MCH 28.1 pg (28.0-34.0) 11/18/21 12:40 MCHC 29.5 g/dL (30.0-36.0) L 11/18/21 12:40 RDW 11.5 % (12.1-15.1) L 11/18/21 12:40 Plt Count 246 10^3/cmm (130-400) 11/18/21 12:40 MPV 10.9 fL (7.4-10.4) H 11/18/21 12:40 Neut % (Auto) 61.7 % 11/18/21 12:40 Lymph % (Auto) 30.5 % 11/18/21 12:40 Ray % (Auto) 2.7 % 11/18/21 12:40 Eos % (Auto) 0.8 % 11/18/21 12:40 Baso % (Auto) 0.4 % 11/18/21 12:40 Neut # (Auto) 11.46 10^3/uL (1.8-7.7) H 11/18/21 12:40 Lymph # (Auto) 5.7 10^3/uL (0.8-4.8) H 11/18/21 12:40 Ray # (Auto) 0.5 10^3/uL (0.2-0.9) 11/18/21 12:40 Eos # (Auto) 0.1 10^3/uL (0.0-0.8) 11/18/21 12:40 Baso # (Auto) 0.1 10^3/uL (0.0-0.1) 11/18/21 12:40 Nucleated RBC % (auto) 0 % 11/18/21 12:40 Nucleated RBCs # 0.0 /100WBC 11/18/21 12:40 Specimen Type Arterial 11/18/21 16:30 Sample Site Radial, left 11/18/21 16:30 ABG pH 7.28 (7.35-7.45) L 11/18/21 16:30 ABG pCO2 32.6 mmHg (35-45) L 11/18/21 16:30 ABG pO2 144.0 mmHg (80.0-100.0) H 11/18/21 16:30 ABG HCO3 15.3 mmol/L (22-26) L 11/18/21 16:30 ABG O2 Saturation > 100.0 11/18/21 12:39 ABG Base Excess -10.4 mmol/L (-2.0-2.0) L 11/18/21 16:30 Chance Test Pos 11/18/21 16:30 A-a O2 Gradient 16.0 mmHg (5-10) H 11/18/21 12:39 Hematocrit 39.9 % (37-47) 11/18/21 16:30 Hgb O2 Saturation 99.2 % (95-100) 11/18/21 12:39 Carboxyhemoglobin 0.4 %THgb (0.4-20.1) 11/18/21 12:39 Methemoglobin 0.6 % (0.4-1.5) 11/18/21 12:39 Total Hemoglobin 11.3 g/dL (12-16) L 11/18/21 12:39 Sodium 138.0 mmol/L (131-143) 11/18/21 12:39 Potassium 3.4 mmol/L (3.5-5.0) L 11/18/21 12:39 Glucose 329.0 mg/dL (70-115) H 11/18/21 12:39 Ionized Calcium 1.1 mmol/L (1.1-1.4) 11/18/21 12:39 O2 Delivery Device Vent 11/18/21 16:30 FiO2 30.0 % 11/18/21 16:30 Tidal Volume 0.40 11/18/21 16:30 PEEP 5.0 cmH20 11/18/21 16:30 Biofuels Plant Superintendent ID Gd 11/18/21 16:30 Sodium 139 mmol/L (136-145) 11/18/21 12:40 Potassium 3.6 mmol/L (3.5-5.1) 11/18/21 12:40 Chloride 110 mmol/L (98-107) H 11/18/21 12:40 Carbon Dioxide 10 mmol/L (22-29) L 11/18/21 12:40 Anion Gap 22.6 (5-19) H 11/18/21 12:40 BUN 13 mg/dL (6-20) 11/18/21 12:40 Creatinine 0.8 mg/dL (0.5-0.9) 11/18/21 12:40 GFR Calculation 81.6 mL/min (90-130) L 11/18/21 12:40 Glucose 320 mg/dL (65-115) H 11/18/21 12:40 Estimat Average Glucose 111 11/18/21 13:40 Hemoglobin A1c 5.5 % (4.0-6.0) 11/18/21 13:40 Calculated Osmolality 300 mOsm/kg (285-295) H 11/18/21 12:40 Lactic Acid 8.2 mmol/L (0.5-2.2) H* 11/18/21 12:40 Calcium 7.0 mg/dL (8.5-10.5) L 11/18/21 12:40 Magnesium 2.1 mg/dL (1.7-2.3) 11/18/21 12:40 Total Bilirubin 0.5 mg/dL (0.15-1.2) 11/18/21 12:40 AST 119 U/L (0-32) H 11/18/21 12:40 ALT 93 U/L (0-33) H 11/18/21 12:40 Alkaline Phosphatase 59 U/L (35-105) 11/18/21 12:40 Creatine Kinase 114 U/L (26-192) 11/18/21 12:40 Total Protein 5.1 g/dL (6.6-8.7) L 11/18/21 12:40 Albumin 3.2 g/dL (3.5-5.2) L 11/18/21 12:40 Globulin 1.9 g/dL (1.3-4.6) 11/18/21 12:40 Lipase 125 U/L (13-60) H 11/18/21 12:40 HCG, Qual Negative (Negative) 11/18/21 12:40 Urine Color Yellow (Yellow) 11/18/21 12:40 Urine Appearance Clear (CLEAR) 11/18/21 12:40 Urine pH 6 (5-7) 11/18/21 12:40 Ur Specific [place] 1.015 (1.005-1.030) 11/18/21 12:40 Urine Protein 1+ (Negative) H 11/18/21 12:40 Urine Glucose (UA) Norm (Normal) 11/18/21 12:40 Urine Ketones Negative (Negative) 11/18/21 12:40 Urine Blood 2+ (Negative) H 11/18/21 12:40 Urine Nitrate Negative (Negative) 11/18/21 12:40 Urine Bilirubin Neg (Negative) 11/18/21 12:40 Urine Urobilinogen Norm mg/dL (Negative) 11/18/21 12:40 Ur Leukocyte Esterase Negative (Negative) 11/18/21 12:40 Urine RBC 15-25 /hpf (0-2) H 11/18/21 12:40 Urine WBC 0-4 /hpf (0-5) H 11/18/21 12:40 Ur Squamous Epith Cells Rare /hpf (0-5) 11/18/21 12:40 Amorphous Sediment Not Reportable 11/18/21 12:40 Urine Bacteria 2+ /hpf (NONE) H 11/18/21 12:40 Urine Mucus Trace /hpf 11/18/21 12:40 Salicylates < 0.3 mg/dL (3-10) L 11/18/21 12:40 Urine Opiates Screen Negative ng/mL (Negative) 11/18/21 12:40 Acetaminophen < 5.0 ug/mL (10-30) L 11/18/21 12:40 Ur Barbiturates Screen Negative ng/mL (Negative) 11/18/21 12:40 Ur Phencyclidine Scrn Negative ng/mL (Negative) 11/18/21 12:40 Ur Amphetamines Screen Negative ng/mL (Negative) 11/18/21 12:40 U Benzodiazepines Scrn Negative ng/mL (Negative) 11/18/21 12:40 Urine Cocaine Screen Negative ng/mL (Negative) 11/18/21 12:40 U Marijuana (THC) Screen Negative ng/mL (Negative) 11/18/21 12:40 Ethyl Alcohol < 10 mg/dL (0-10) 11/18/21 12:40 Serum Ketones Negative (Negative) 11/18/21 13:40 Coronavirus 229E (PCR) Not detected (NOT DETECT) 11/18/21 12:47 SARS-CoV-2 (PCR) Not detected (NOT DETECT) 11/18/21 12:47 Radiology Impressions Chest X-Ray 11/18/21 12:35 IMPRESSION: 1. Endotracheal tube with tip approximately 4.9 cm above the briseida. 2. Nodular densities at the lung bases likely represent nipple shadows. Consider repeat chest x-ray with nipple markers to confirm. Chest/Abdomen/Pelvis CT 11/18/21 12:36 IMPRESSION: 1. Dependent atelectatic changes in both lungs. No significant lung abnormalities or other acute thoracic findings otherwise. 2. Minimal cardiomegaly with no obvious vascular congestion. IMPRESSION: 1. Somewhat limited exam due to artifacts from thoracolumbar spine junction hardware. 2. Trace perihepatic ascites and minimal nonspecific periportal lucency/edema of uncertain significance but may be related to rapid IV hydration. Clinical/LFT correlation should be obtained. 3. Large stool burden with significant amount of liquid stool suggesting possible diarrhea. There is also mild ascending colonic distension with no other obvious signs of small bowel or colonic obstruction, pneumatosis or suspicious bowel wall thickening. 4. Probable small uterine fibroid. Head CT 11/18/21 12:46 IMPRESSION: 1. Diffuse sulcal effacement with which may reflect mild generalized swelling. The handy-white differentiation is discernible arguing against presley global infarction. Recommend close interval follow-up to reassess. 2. No acute intracranial hemorrhage is identified. ADDENDUM: 11/18/[address] Berrios at 11/18/2021 2:18 PM CDT. Recent Clincial Data Last Vital Signs Pulse 74 11/18/21 16:24 Resp 21 H 11/18/21 17:17 BP 122/80 11/18/21 15:30 Pulse Ox 100 11/18/21 17:17 O2 Del Method 11/18/21 16:24 FiO2 21 11/18/21 18:00 Vital Signs Pulse Resp BP Pulse Ox O2 Del Method FiO2 11/18/21 18:00 21 11/18/21 17:17 21 H 100 21 11/18/21 16:11 Mechanical Ventilation 11/18/21 16:24 74 23 H 100 Mechanical Ventilation 30 11/18/21 16:25 32 H 100 30 11/18/21 16:12 27 H 11/18/21 15:40 18 100 11/18/21 15:30 89 26 H 122/80 11/18/21 15:20 87 30 H 122/68 98 11/18/21 15:10 86 25 H 158/86 100 11/18/21 15:00 87 26 H 136/79 100 11/18/21 14:50 82 19 H 115/76 99 11/18/21 14:47 88 23 H 115/76 100 11/18/21 12:54 14 100 11/18/21 12:30 87 20 H 111/80 93 Room Air, Oxymask Intake & Output/Weight 11/16/21 11/17/21 11/18/21 11/19/21 06:59 06:59 06:59 06:59 Intake Total 1176.393 / 1176.393 Balance 1176.393 / 1176.393 Weight 72.575 kg Vitals Last Vital Signs Pulse 74 11/18/21 16:24 Resp 21 H 11/18/21 17:17 BP 122/80 11/18/21 15:30 Pulse Ox 100 11/18/21 17:17 O2 Del Method 11/18/21 16:24 FiO2 21 11/18/21 18:00 TS Medications Medications Acetaminophen (Acetaminophen 500 Mg Tablet) 500 mg PO Q4H PRN PRN Reason: fever Acetaminophen (Acetaminophen 500 Mg Tablet) 500 mg PO Q4H PRN PRN Reason: fever Albuterol/Ipratropium (Ipratropium-Albuterol 3 Ml Neb) 3 ml INHALATION Q6H PRN PRN Reason: SHORTNESS OF BREATH Artificial Tears (Artificial Tears Op Oint 3.5 Gm) 1 applic EYE-BOTH PRN PRN PRN Reason: DRY EYE(S) Chlorhexidine Gluconate (Chlorhexidine Gluconate 4% Btl 118 Ml) 1 applic TOPICAL 0100 [facility] Last Admin: 11/18/21 12:41 Dose: 1 applic Enoxaparin Sodium (Enoxaparin 60 Mg/0.6 Ml Syringe) 60 mg SUBCUT Q12H [facility] Naloxone HCl 2 mg/ Sodium (Chloride) 102 mls @ 20.4 mls/hr IV .Q5H [facility] Last Infusion: 11/18/21 16:20 Dose: 0 mg/hr, 0 mls/hr Propofol (Diprivan) 1,000 mg in 100 mls @ 0 mls/hr IV .Q0M [facility]; Protocol Last Titration: 11/18/21 18:15 Dose: 0 mcg/kg/min, 0 mls/hr calcium gluconate 0.9% NaCL (Calcium Gluconate 0.9% Nacl) 1 gm in 50 mls @ 100 mls/hr IV Q30MIN [facility] Stop: 11/19/21 15:59 Last Infusion: 11/18/21 18:14 Dose: Infused Sodium Bicarbonate 150 meq/ (Dextrose) 1,150 mls @ 100 mls/hr IV .[id number] [facility] Amiodarone HCl 900 mg/Dextrose/ IV Miscellaneous Supplies 518 mls @ 0 mls/hr IV .Q0M [facility]; Protocol Piperacillin Sod/Tazobactam (Sod 3.375 gm/ Sodium Chloride) 50 mls @ 12.5 mls/hr IV Q8H [facility]; Protocol Last Admin: 11/18/21 18:23 Dose: 12.5 mls/hr Vancomycin/PEG/NADA/Lysine/Water (Vancocin) 1,250 mg in 250 mls @ 200 mls/hr IV Q12H [facility] Midazolam HCl 100 mg/ Sodium (Chloride) 100 mls @ 0 mls/hr IV .Q0M [facility]; Protocol Last Admin: 11/18/21 19:08 Dose: 2 mg/hr, 2 mls/hr Cisatracurium Besylate 100 mg/ (Sodium Chloride) 100 mls @ 0 mls/hr IV .Q0M [facility]; Protocol Lidocaine HCl 5 ml/ Potassium (Chloride) 105 mls @ 25 mls/hr IV ONCE ONE Stop: 11/18/21 22:56 Ondansetron HCl (Ondansetron 2 Mg/Ml Sdv 2 Ml) 4 mg IVP Q6H PRN PRN Reason: NAUSEA AND VOMITING Discontinued Medications Enoxaparin Sodium (Enoxaparin 60 Mg/0.6 Ml Syringe) 60 mg SUBCUT ONCE ONE Stop: 11/18/21 13:41 Last Admin: 11/18/21 14:19 Dose: 60 mg Etomidate (Etomidate 2 Mg/Ml Inj) 30 mg IVP NOW ONE Stop: 11/18/21 12:37 Last Admin: 11/18/21 12:30 Dose: 30 mg Propofol (Diprivan) 1,000 mg in 100 mls @ 0 mls/hr IV .Q0M [facility]; Protocol Sodium Chloride (Sodium Chloride 0.9%) 1,000 mls @ 999 mls/hr IV .Q1H1M ONE Stop: 11/18/21 13:36 Last Infusion: 11/18/21 13:06 Dose: Infused Fentanyl 1,000 mcg/ Sodium (Chloride) 100 mls @ 0 mls/hr IV .Q0M [facility]; Protocol Midazolam HCl 100 mg/ Sodium (Chloride) 100 mls @ 0 mls/hr IV .Q0M [facility]; Protocol Amiodarone HCl 900 mg/Dextrose/ IV Miscellaneous Supplies 518 mls @ 0 mls/hr IV .Q0M [facility]; Protocol Last Admin: 11/18/21 14:33 Dose: 0.97 mg/min, 33.33 mls/hr Sodium Bicarbonate 50 meq/ (Sodium Chloride) 1,050 mls @ 100 mls/hr IV .[id number] [facility] Last Admin: 11/18/21 14:25 Dose: 100 mls/hr Sodium Chloride (Sodium Chloride 0.9%) 1,000 mls @ 999 mls/hr IV .Q1H1M ONE Stop: 11/18/21 14:40 Last Admin: 11/18/21 14:48 Dose: 999 mls/hr Vancomycin HCl / Sodium (Chloride) 250 mls @ 0 mls/hr [id number] PROTOCOL [facility]; Protocol Iohexol (Iohexol 350 Mg/Ml 100 Ml Btl) 0 ml IV ONCE ONE Stop: 11/18/21 14:07 Last Admin: 11/18/21 14:06 Dose: 80 ml Midazolam HCl (Midazolam 1 Mg/Ml Inj 2 Ml) 5 mg IVP ONCE ONE Stop: 11/18/21 13:33 Last Admin: 11/18/21 13:22 Dose: 5 mg Naloxone HCl (Naloxone 1 Mg/Ml Syringe) Confirm Administered Dose 2 mg .ROUTE .STK-MED ONE Stop: 11/18/21 12:58 Succinylcholine Chloride (Succinylcholine 20 Mg/Ml Sdv 10ml) 100 mg IV ONCE ONE Stop: 11/18/21 12:38 Last Admin: 11/18/21 12:30 Dose: 100 mg Allergies diphenhydramine [From Benadryl] Adverse Reaction (Intermediate, Verified 11/18/21 13:37) ADR-Hallucinating Home Medications No Known Home Medications 11/18/21 [History Confirmed 11/18/21] Discharge Plan Discharge Patient Disposition: Home Condition: Stable Prescriptions: No Action No Known Home Medications Patient Instructions: Opioid Safety Transfer Attestations Time Spent in Transfer Care: less than 30 min Quality Metrics Clinical Quality Measures [ No reported AMI, CVA or VTE this stay] Coding Level of Care Code Acute Drop Board Man for Leonard Ledesma Diagnoses Back pain M54.9 Anoxic encephalopathy G93.1 Cardiac arrest I46.9 Respiratory failure J96.90 Lactic acidemia E87.2 Metabolic acidosis E87.2 Constipation K59.00
--- NOTE | 2021-11-18 19:23 | PC.NURSE ---
recieved prior from er post code status had large loose bm cleaned and rectal tube placed at this time no purposful response noted seisure activity noted loss of dolls eyes .. doctor here narcan and propofol gtt stopped to evaluate at this time no change status .. gautam alejo urine bicarb gtt infusing and mother father at bedside arrange for transfer to [place]
[2021-11-18] MEDS: vancomycin 1,250 MG/250 ML PIGGYBACK 200 MG IV (19:46)
--- NOTE | 2021-11-18 20:18 | PC.NURSE ---
Spoke to Jessica with bed management at [facility] in [facility]. Patient assigned to bed [address] bed 1 CCU unit. Phone number to unit [phone]. Accepting physician Dr. Ortega.
--- NOTE | 2021-11-18 21:55 | PC.NURSE ---
Pt transferred to [facility] via [employer] helicopter. Family present at time of transfer. Report was called to Liv Mcfarland RN at 2049, with an update given at 2153 regarding tube placement of 23 cm at the lip and presence of gag reflex upon transfer to [facility].
--- NOTE | 2021-11-18 22:10 | PC.NURSE ---
This nurse was 1 on 1 with patient from approximately 1900 until transfer. Pt has absence of doll's eyes, but pupils are now reactive. Pt appears to be posturing, arms and legs are rigid and legs do not bend when lifted off of bed. Corneal reflexes are appreciated. No seizure activity appreciated post Versed drip initiation. Unable to elicit a cough reflex with deep endotracheal suctioning. However, pt did gag when moved to stretcher. Dr. Moran at bedside for approximately 1 hour, attempted central line placement. Family at bedside at time of transfer.
--- NOTE | 2021-11-18 22:30 | PC.NURSE ---
Dr. Moran at bedside at approximately 1945. He does not wish for me to administer Nimbex.
--- NOTE | 2021-11-18 22:31 | PC.NURSE ---
Pt receiving sodium bicarb at 100 mls/hr and Amiodarone at 1 mg/min prior to shift change and until transfer.
--- NOTE | 2021-11-18 22:36 | PC.NURSE ---
This nurse was not informed of invisalign in pt's possession. Her parents, , and daughter were present at time of discharge.
--- NOTE | 2021-11-19 01:17 | PC.NURSE ---
Addendum entered by Brook Farrell RN 11/19/21 01:24: Propofol 90 mls wasted, witnessed by this RN. Original Note: Propofol waste 90ml. Witnessed by second RN.
== END 2021-11-18 21:35 | disposition short-term general hospital (02) | DRG 296 ==
LOC: ER 13:47 → ICU 14:21
PROVIDERS: Family Medicine; Admitting Provider Internal Medicine; Emergency Provider Emergency Medicine; Visit Provider Internal Medicine
DX: I46.9 Cardiac arrest, cause unspecified (principal); J96.90 Respiratory failure, unspecified, unspecified whether with hypoxia or hypercapnia; G93.1 Anoxic brain damage, not elsewhere classified; E87.2 Acidosis; M41.9 Scoliosis, unspecified; K59.00 Constipation, unspecified
CPT/HCPCS: 36600; 51702; 70450; 71045; 71275; 74177; 80051; 80053; 80306; 80307; 81001; 82009; 82330; 82550; 82803; 82805; 83036; 83605; 83690; 83735; 84703; 85025; 86403; 87070; 87077; 87086; 87186; 87205; 87449; 87635; 87641; 93005; 94002; 94799; 96365; 96366; 96367; 96368; 96372; 99291; J0282; J0330; J0610; J1650; J2250; J2310; J2543; J2704; J3370; J3490; J7030; J7060; Q9967